=== PATIENT | male | born 1970 | race African-American/Black ===

== ENCOUNTER 2018-10-18 22:48 | Emergency (ER) | payer SELFPAY ==
--- NOTE | 2018-10-18 22:58 | ED.ADGEN ---
Past History Smoking: Cigarettes Alcohol Use: Heavy Drug Use: Cocaine, Marijuana, Other Adult General Chief Complaint Chief Complaint "...I ve been partying... did about six pack.. and some vodka... And about 5 lines of cocaine... but I fell backwards and hit my head... I still got a headache..." HPI HPI Patient is a 47 year old male who presents with above hx and complaints of head injury from fall. Pt. localizes pain to posterior scalp. Patient denies any neck pain. Patient has already removed his collar. Patient denies any immunosuppression. Patient denies any travel. Patient admits to alcohol and cocaine use tonight. Patient was ambulatory at scene. No reports of loss of consciousness. Pt. hyperventilating on arrival. Review of Systems Review of Systems Constitutional: Denies fever or chills [] Eyes: Denies change in visual acuity, redness, or eye pain [] HENT: Denies nasal congestion or sore throat [] Respiratory: Denies cough or shortness of breath [] Cardiovascular: No additional information not addressed in HPI [] GI: Denies abdominal pain, nausea, vomiting, bloody stools or diarrhea [] : Denies dysuria or hematuria [] Musculoskeletal: Denies back pain or joint pain [] Integument: Denies rash or skin lesions [] Neurologic: Complains of headache. Denies, focal weakness or sensory changes [] Endocrine: Denies polyuria or polydipsia [] All other systems were reviewed and found to be within normal limits, except as documented in this note. Family History Family History Noncontributory Current Medications Current Medications Current Medications Medications (Trade) Dose Ordered Sig/Julieta Start Time Stop Time Status Last Admin Dose Admin Folic Acid (FOLIC ACID SYRINGE for ER) 5 mg STK-MED ONCE 10/18/18 23:39 10/18/18 23:40 DC Lactated Ringer's 1,000 ml @ 1,000 mls/hr 1X ONCE 10/18/18 23:45 10/19/18 00:44 DC 10/18/18 23:47 1,000 MLS/HR Multivitamins/ Minerals (Infuvite Adult) 10 ml STK-MED ONCE 10/18/18 23:38 10/18/18 23:39 DC Multivitamins/ Minerals 10 ml/ Folic Acid 1 mg/ Thiamine HCl 100 mg/Lactated Ringer's 1,011.2 ml @ 1,011.2 mls/hr 1X ONCE 10/18/18 23:45 10/19/18 00:44 DC 10/18/18 23:45 1,011.2 MLS/HR Thiamine HCl (Thiamine Vial) 200 mg STK-MED ONCE 10/18/18 23:38 10/18/18 23:40 DC See nursing for home meds Allergies Allergies Allergies Coded Allergies Type Severity Reaction Last Updated Verified No Known Drug Allergies 10/18/18 No No known drug allergies Physical Exam Physical Exam Constitutional: no acute distress, non-toxic appearance. []Smell of alcohol intoxicants HENT: Normocephalic, contusion to posterior scalp, bilateral external ears normal, oropharynx dry, no oral exudates, nose injected turbinates. ] Eyes: PERRLA, EOMI, conjunctiva normal, no discharge. [] Neck: Normal range of motion, no tenderness, supple, no stridor. [] Cardiovascular: Tachycardia Heart rate regular rhythm, no murmur [] Lungs & Thorax: Bilateral breath sounds equal at apexes scattered wheezes on auscultation [] Abdomen: Bowel sounds normal, soft, no tenderness, no masses, no pulsatile masses. [] Skin: Warm, dry, no erythema, no rash. [] Back: No tenderness, no CVA tenderness. [] Extremities: No tenderness, no cyanosis, no clubbing, ROM intact, no edema. [] Neurologic: Alert and oriented X 3, normal motor function, normal sensory function, no focal deficits noted. [] Electronics Research Engineer equal. Psychologic: Affect anxious, judgement normal, mood normal. [] Current Patient Data Vital Signs Vital Signs Date Time Temp Pulse Resp B/P (MAP) Pulse Ox O2 Delivery O2 Flow Rate FiO2 10/19/18 01:25 86 17 111/56 (74) 97 Room Air 10/19/18 00:52 2.0 10/18/18 22:50 97.5 Lab Results Laboratory Tests Test 10/18/18 23:25 10/19/18 00:30 White Blood Count 9.6 x10^3/uL (4.0-11.0) Red Blood Count 5.27 x10^6/uL (4.30-5.70) Hemoglobin 15.5 g/dL (13.0-17.5) Hematocrit 46.7 % (39.0-53.0) Mean Corpuscular Volume 89 fL (79-100) Mean Corpuscular Hemoglobin 30 pg (25-35) Mean Corpuscular Hemoglobin Concent 33 g/dL (31-37) Red Cell Distribution Width 13.5 % (11.5-14.5) Platelet Count 386 x10^3/uL (140-400) Neutrophils (%) (Auto) 53 % (31-73) Lymphocytes (%) (Auto) 36 % (24-48) Monocytes (%) (Auto) 8 % (0-9) Eosinophils (%) (Auto) 2 % (0-3) Basophils (%) (Auto) 1 % (0-3) Neutrophils # (Auto) 5.1 x10^3uL (1.8-7.7) Lymphocytes # (Auto) 3.5 x10^3/uL (1.0-4.8) Monocytes # (Auto) 0.7 x10^3/uL (0.0-1.1) Eosinophils # (Auto) 0.2 x10^3/uL (0.0-0.7) Basophils # (Auto) 0.1 x10^3/uL (0.0-0.2) Segmented Neutrophils % 49 % (35-66) Lymphocytes % 46 % (24-48) Monocytes % 5 % (0-10) Platelet Estimate Adequate (ADEQUATE) Prothrombin Time 12.1 SEC (9.4-11.4) H Prothrombin Time INR 1.2 (0.9-1.1) H PTT 32 SEC (23-33) Sodium Level 142 mmol/L (136-145) Potassium Level 3.8 mmol/L (3.5-5.1) Chloride Level 100 mmol/L (98-107) Carbon Dioxide Level 10 mmol/L (21-32) *L Anion Gap 32 (6-14) H Blood Urea Nitrogen 21 mg/dL (8-26) Creatinine 2.4 mg/dL (0.7-1.3) H Estimated GFR (Cockcroft-Gault) 35.3 Glucose Level 107 mg/dL (70-99) H Calcium Level 9.6 mg/dL (8.5-10.1) Magnesium Level 3.4 mg/dL (1.8-2.4) H Total Bilirubin 0.5 mg/dL (0.2-1.0) Direct Bilirubin 0.1 mg/dL (0.0-0.2) Aspartate Amino Transferase (AST) 27 U/L (15-37) Alanine Aminotransferase (ALT) 23 U/L (16-63) Alkaline Phosphatase 87 U/L (46-116) Creatine Kinase 674 U/L (39-308) H Troponin I Quantitative < 0.017 ng/mL (0-0.055) Total Protein 8.9 g/dL (6.4-8.2) H Albumin 4.0 g/dL (3.4-5.0) Ethyl Alcohol Level < 10 mg/dL (0-10) Urine Collection Type Unknown Urine Color Yellow Urine Clarity Hazy Urine pH 5.5 Urine Specific [place] >=1.030 Urine Protein 100 mg/dl (NEG-TRACE) Urine Glucose (UA) Neg mg/dL (NEG) Urine Ketones (Stick) 40 mg/dL (NEG) Urine Blood Trace (NEG) Urine Nitrite Neg (NEG) Urine Bilirubin Neg (NEG) Urine Urobilinogen Dipstick 1 mg/dL (0.2 mg/dL) Urine Leukocyte Esterase Neg (NEG) Urine RBC Occ /HPF (0-2) Urine WBC Occ /HPF (0-4) Urine Squamous Epithelial Cells Few /LPF Urine Bacteria 0 /HPF (0-FEW) Urine Opiates Screen Neg (NEG) Urine Methadone Screen Neg (NEG) Urine Barbiturates Neg (NEG) Urine Phencyclidine Screen Neg (NEG) Urine Amphetamine/Methamphetamine Neg (NEG) Urine Benzodiazepines Screen Neg (NEG) Urine Cocaine Screen Pos (NEG) Urine Cannabinoids Screen Pos (NEG) Urine Ethyl Alcohol Neg (NEG) EKG EKG I interpretation EKG shows a sinus tachycardia heart beats per minute. No findings acute STEMI of contralateral changes.[] Radiology/Procedures Radiology/Procedures My interpretation chest x-ray shows no acute Cardiopulmonary findings.[] My interpretation CT of head and neck shows no obvious bleed, shift, mass, edema , bleed or fracture. Does have a retention nasal cyst on the left. Cervical shows no obvious fracture dislocation. See formal report when available Course & Med Decision Making Course & Med Decision Making Pertinent Labs and Imaging studies reviewed. (See chart for details) Patient to push fluids. Patient take Tylenol for discomfort. Patient follow-up primary care. Patient avoid further illicit drugs and alcohol tonight. Patient to return if any concerns. Pt. ambulatory without problems at time of discharge. [] Final Impression Final Impression 1. Fall 2. Head Injury 3. Hx. Polysubstance Abuse[]Tob., Cocaine, Marijuana 4. Dehydration 5. Elevated creatinine 2.4 6. Elevated Mag. Dragon Disclaimer Dragon Disclaimer This electronic medical record was generated, in whole or in part, using a voice recognition dictation system. RAYNA DEL RIO MD Oct 18, 2018 22:58
--- NOTE | 2018-10-18 23:22 | EKG ---
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
[2018-10-18] MEDS ORDERED: MVI, ADULT NO.4 WITH VIT K 10 ML VIAL IV ONE (23:38)
[2018-10-18] MEDS ORDERED: THIAMINE 200 MG/2 ML VIAL. IV ONE (23:38)
[2018-10-18] MEDS ORDERED: FOLIC ACID 5 MG/ML SYRINGE for ER IV ONE (23:39)
--- NOTE | 2018-10-18 23:41 | RAD ---
Examination: CT HEAD AND CERVICAL SPINE WO History: Fall tonight, hit head, intoxicated, vision problems, neck pain Comparison/Correlation: None Findings: Axial images of the head were obtained without contrast. Axial images of the cervical spine were obtained. Sagittal and coronal reformatted images were provided. Ventricles are normal size. No intracranial hemorrhage, midline shift, or mass effect. No depressed fracture. Maxillary sinus mucous retention cyst on the left is present. Chronic paranasal sinusitis. Globes and optic nerves are unremarkable. Atlantoaxial joint degenerative remodeling is present. Alignment is normal. No fracture or bony destruction. Mild spurring at the C3-4 disc space level with minimal foraminal encroachment noted. Soft tissues are unremarkable. Impression: No intracranial hemorrhage. No fracture or malalignment of the cervical spine. Electronically signed by: Abdoulaye Steward MD (10/18/2018 11:37 PM) [facility]
[2018-10-18 23:42] LABS: BASO # 0.1 x10^3/uL (0.0-0.2); BASO % 1 % (0-3); EOS # 0.2 x10^3/uL (0.0-0.7); EOS % 2 % (0-3); HEMATOCRIT 46.7 % (39.0-53.0); HEMOGLOBIN 15.5 g/dL (13.0-17.5); LYMPH # 3.5 x10^3/uL (1.0-4.8); LYMPH % 36 % (24-48); MEAN CORPUSCULAR HEMOGLOBIN 30 pg (25-35); MEAN CORPUSCULAR HGB CONC 33 g/dL (31-37); MEAN CORPUSCULAR VOLUME 89 fL (79-100); MONO # 0.7 x10^3/uL (0.0-1.1); MONO % 8 % (0-9); NEUT # 5.1 x10^3uL (1.8-7.7); NEUT % 53 % (31-73); PLATELET COUNT 386 x10^3/uL (140-400); RED BLOOD COUNT 5.27 x10^6/uL (4.30-5.70); RED CELL DISTRIBUTION WIDTH 13.5 % (11.5-14.5); WHITE BLOOD COUNT 9.6 x10^3/uL (4.0-11.0)
[2018-10-18] MEDS ORDERED: MVI, ADULT NO.4 WITH VIT K 10 ML, FOLIC ACID SYRINGE for ER 1 MG, THIAMINE INJ 100 MG i... IV ONE ×4 (23:45)
[2018-10-18] MEDS ORDERED: IV RINGERS SOLUTION,LACTATED 1,000 ML IV ONE (23:45)
[2018-10-18 23:54] LABS: CALCIUM 9.6 mg/dL (8.5-10.1); CREATININE 2.4 mg/dL (0.7-1.3); DIRECT BILIRUBIN 0.1 mg/dL (0.0-0.2); GFR 35.3; MAGNESIUM 3.4 mg/dL (1.8-2.4); POTASSIUM 3.8 mmol/L (3.5-5.1); TOTAL BILIRUBIN 0.5 mg/dL (0.2-1.0); TOTAL PROTEIN 8.9 g/dL (6.4-8.2)
[2018-10-19 00:01] LABS: % LYMPHS 46 % (24-48); % MONOS 5 % (0-10); % SEGS 49 % (35-66); PLT ESTIMATE ADEQUATE (ADEQUATE)
[2018-10-19 00:50] LABS: BARBITURATES NEG (NEG); BENZODIAZEPINES NEG (NEG); CANNABINOIDS POS (NEG); COCAINE POS (NEG); METHADONE NEG (NEG); OPIATES NEG (NEG); PHENCYCLIDINE NEG (NEG)
[2018-10-19 00:51] LABS: AMPHETAMINE/METHAMPHETAMINE NEG (NEG)
[2018-10-19 00:55] LABS: BILIRUBIN,URINE NEG (NEG); CLARITY,URINE HAZY; COLOR,URINE YELLOW; GLUCOSE,URINE NEG (NEG); NITRITE,URINE NEG (NEG); UROBILINOGEN,URINE 1 mg/dL (0.2 mg/dL)
[2018-10-19 00:56] LABS: BACTERIA,URINE 0 /HPF (0-FEW); RBC,URINE OCC /HPF (0-2); SQUAMOUS EPITHELIAL CELL,UR FEW /LPF; WBC,URINE OCC /HPF (0-4)
[2018-10-19 01:25] VITALS: BP 111/56
--- NOTE | 2018-10-19 08:22 | RAD ---
Chest, PA and Lateral: Technique: PA and lateral views of the chest were obtained. History: Fall, chest discomfort. Comparison: None. Findings: The heart and pulmonary vasculature appear within normal limits. Minimal bibasilar lung airspace opacities likely atelectasis or infiltrates.. Mild degenerative changes thoracic spine.. Impression: Minimal bibasilar lung airspace opacities likely atelectasis or infiltrates.. Electronically signed by: Shaun Miles MD (10/19/2018 8:18 AM) [facility]
== END 2018-10-19 01:25 | disposition home or self-care (01) ==
LOC: ER 22:48
DX: S00.03XA Contusion of scalp, initial encounter (principal); E86.0 Dehydration; R79.89 Other specified abnormal findings of blood chemistry; R79.0 Abnormal level of blood mineral; F17.210 Nicotine dependence, cigarettes, uncomplicated; F12.10 Cannabis abuse, uncomplicated; F14.10 Cocaine abuse, uncomplicated; F10.20 Alcohol dependence, uncomplicated; Y90.0 Blood alcohol level of less than 20 mg/100 ml; W18.09XA Striking against other object with subsequent fall, initial encounter; Y93.89 Activity, other specified; Y92.89 Other specified places as the place of occurrence of the external cause; Y99.8 Other external cause status
CPT/HCPCS: 36415; 70450; 71046; 72125; 80048; 80076; 80307; 81001; 82550; 83735; 84484; 85007; 85025; 85610; 85730; 93005; 96365; 99284; G0480; J7120

== ENCOUNTER 2018-11-29 20:32 | Emergency (ER) | payer SELFPAY ==
[~2018-11-29] VITALS: Ht 167.6 cm; Wt 91.0 kg
[2018-11-29 20:32] VITALS: BP 139/79
--- NOTE | 2018-11-29 21:29 | ED.ADGEN ---
Past History Past Medical History: No Pertinent History Past Surgical History: Other Smoking: Cigarettes Alcohol Use: Heavy Drug Use: Cocaine, Marijuana, Other Adult General Chief Complaint Chief Complaint 48 years old male presented to ER with fever HPI HPI 48 years old male presented emergency department with body aches fever cough Review of Systems Review of Systems Constitutional: + fever Eyes: Denies change in visual acuity, redness, or eye pain [] HENT: + nasal congestion or sore throat [] Respiratory: Denies cough or shortness of breath [] Cardiovascular: No additional information not addressed in HPI [] GI: Denies abdominal pain, nausea, vomiting, bloody stools or diarrhea [] : Denies dysuria or hematuria [] Musculoskeletal: Denies back pain or joint pain [] Integument: Denies rash or skin lesions [] Neurologic: Denies headache, focal weakness or sensory changes [] Endocrine: Denies polyuria or polydipsia [] All other systems were reviewed and found to be within normal limits, except as documented in this note. Allergies Allergies Allergies Coded Allergies Type Severity Reaction Last Updated Verified No Known Drug Allergies 10/18/18 No Physical Exam Physical Exam Constitutional: Well developed, well nourished, no acute distress, non-toxic appearance. [] HENT: Normocephalic, atraumatic, bilateral external ears normal, oropharynx moist, no oral exudates, nose normal. [] Eyes: PERRLA, EOMI, conjunctiva normal, no discharge. [] Neck: Normal range of motion, no tenderness, supple, no stridor. [] Cardiovascular:Heart rate regular rhythm, no murmur [] Lungs & Thorax: Bilateral breath sounds clear to auscultation [] Abdomen: Bowel sounds normal, soft, no tenderness, no masses, no pulsatile masses. [] Skin: Warm, dry, no erythema, no rash. [] Back: No tenderness, no CVA tenderness. [] Extremities: No tenderness, no cyanosis, no clubbing, ROM intact, no edema. [] Neurologic: Alert and oriented X 3, normal motor function, normal sensory function, no focal deficits noted. [] Psychologic: Affect normal, judgement normal, mood normal. [] EKG EKG [] Radiology/Procedures Radiology/Procedures [] Course & Med Decision Making Course & Med Decision Making Pertinent Labs and Imaging studies reviewed. (See chart for details) [] Final Impression Final Impression [] Problems: (1) Influenza A Dragon Disclaimer Dragon Disclaimer This electronic medical record was generated, in whole or in part, using a voice recognition dictation system. ESPERANZA DUNN MD Nov 29, 2018 21:29
== END 2018-11-29 21:00 | disposition home or self-care (01) ==
LOC: ER 20:32
DX: J10.1 Influenza due to other identified influenza virus with other respiratory manifestations (principal); F17.210 Nicotine dependence, cigarettes, uncomplicated; F10.20 Alcohol dependence, uncomplicated; Y90.9 Presence of alcohol in blood, level not specified
CPT/HCPCS: 99281

== ENCOUNTER 2018-12-12 23:04 | Emergency (ER) | payer SELFPAY ==
[~2018-12-12] VITALS: Ht 167.6 cm; Wt 88.5 kg
[2018-12-12 23:23] VITALS: BP 145/89
[2018-12-13] MEDS ORDERED: NEO/5DRO OS (00:13)
[2018-12-13] MEDS ORDERED: MELO7.5T5 PO (00:13)
--- NOTE | 2018-12-13 00:25 | ED.ADGEN ---
Past History Past Medical History: No Pertinent History Past Surgical History: Other Smoking: Cigarettes Alcohol Use: Heavy Drug Use: Cocaine, Marijuana, Other Adult General Chief Complaint Chief Complaint ear pain HPI HPI [age]years old male presented to the emergency department with the right ear pain for about a week also complaining of right foot pain for that week no history of trauma , no fever no chills, no headache no sore throat Review of Systems Review of Systems Constitutional: Denies fever or chills [] Eyes: Denies change in visual acuity, redness, or eye pain [] HENT: Denies nasal congestion or sore throat [] Respiratory: Denies cough or shortness of breath [] Cardiovascular: No additional information not addressed in HPI [] GI: Denies abdominal pain, nausea, vomiting, bloody stools or diarrhea [] : Denies dysuria or hematuria [] Musculoskeletal: Denies back pain or joint pain [] Integument: Denies rash or skin lesions [] Neurologic: Denies headache, focal weakness or sensory changes [] Endocrine: Denies polyuria or polydipsia [] All other systems were reviewed and found to be within normal limits, except as documented in this note. Allergies Allergies Allergies Coded Allergies Type Severity Reaction Last Updated Verified No Known Drug Allergies 10/18/18 No Physical Exam Physical Exam Constitutional: Well developed, well nourished, no acute distress, non-toxic appearance. [] HENT: Normocephalic, atraumatic, bilateral external ears right ear canal on the right oropharynx moist, no oral exudates, nose normal. [] Eyes: PERRLA, EOMI, conjunctiva normal, no discharge. [] Neck: Normal range of motion, no tenderness, supple, no stridor. [] Cardiovascular:Heart rate regular rhythm, no murmur [] Lungs & Thorax: Bilateral breath sounds clear to auscultation [] Abdomen: Bowel sounds normal, soft, no tenderness, no masses, no pulsatile masses. [] Skin: Warm, dry, no erythema, no rash. [] Back: No tenderness, no CVA tenderness. [] Extremities: No tenderness, no cyanosis, no clubbing, ROM intact, no edema. [] Neurologic: Alert and oriented X 3, normal motor function, normal sensory function, no focal deficits noted. [] Psychologic: Affect normal, judgement normal, mood normal. [] Current Patient Data Vital Signs Vital Signs Date Time Temp Pulse Resp B/P (MAP) Pulse Ox O2 Delivery O2 Flow Rate FiO2 12/12/18 23:23 98.0 111 20 100 Room Air EKG EKG [] Radiology/Procedures Radiology/Procedures [] Course & Med Decision Making Course & Med Decision Making Pertinent Labs and Imaging studies reviewed. (See chart for details) [] Final Impression Final Impression [] Problems: (1) Otitis externa Qualifiers: Dragon Disclaimer Dragon Disclaimer This electronic medical record was generated, in whole or in part, using a voice recognition dictation system. ESPERANZA DUNN MD Dec 13, 2018 00:25
--- NOTE | 2018-12-13 01:18 | RAD ---
Three-view right foot dated 12/12/2018. No comparison available. CLINICAL INDICATION: Severe medial foot pain for 3 days. FINDINGS: 3 views of the right foot show normal bony alignment. No displaced fracture. No acute osseous or articular abnormality. Mild degenerative change of the first MTP joint. IMPRESSION: No acute findings. Electronically signed by: Ken Pérez MD (12/13/2018 1:15 AM) [facility]
== END 2018-12-13 00:29 | disposition home or self-care (01) ==
LOC: ER 23:04
DX: H60.91 Unspecified otitis externa, right ear (principal); F17.210 Nicotine dependence, cigarettes, uncomplicated; F10.20 Alcohol dependence, uncomplicated; Y90.9 Presence of alcohol in blood, level not specified
CPT/HCPCS: 73630; 99283

== ENCOUNTER 2019-04-03 12:14 | Emergency (ER) | payer SELFPAY ==
[~2019-04-03] VITALS: Ht 167.6 cm; Wt 83.5 kg
[~2019-04-03 12:14] MED LIST: MELO7.5T5 PO; NEO/5DRO OS
--- NOTE | 2019-04-03 12:53 | PHYS DOC ---
Past History Past Medical History: No Pertinent History Past Surgical History: Other Smoking: Cigarettes Alcohol Use: Heavy Drug Use: Cocaine, Marijuana, Other Adult General Chief Complaint Chief Complaint: FLU SYMPTOM HPI HPI 48-year-old male presents with 2 day history of nausea, vomiting, and diarrhea. The patient states that this been going on for 2 days and he is unable to keep down any solid food. He vomits every time he tries. He has been able to keep down some water, but feels like he is still getting dehydrated. He has several episodes each day. After the vomiting started, he got diffuse abdominal cramping. He has not measured a fever, but has had chills. No known sick contacts. Review of Systems Review of Systems Constitutional: Denies fever or chills [] Eyes: Denies change in visual acuity, redness, or eye pain [] HENT: Denies nasal congestion or sore throat [] Respiratory: Denies cough or shortness of breath [] Cardiovascular: No additional information not addressed in HPI [] GI: Abdominal pain, nausea, vomiting, diarrhea [] : Denies dysuria or hematuria [] Musculoskeletal: Denies back pain or joint pain [] Integument: Denies rash or skin lesions [] Neurologic: Denies headache, focal weakness or sensory changes [] Endocrine: Denies polyuria or polydipsia [] All other systems were reviewed and found to be within normal limits, except as documented in this note. Allergies Allergies Allergies Coded Allergies Type Severity Reaction Last Updated Verified No Known Drug Allergies 10/18/18 No Physical Exam Physical Exam Constitutional: Well developed, well nourished, no acute distress, non-toxic appearance. [] HENT: Normocephalic, atraumatic, bilateral external ears normal, oropharynx dry, no oral exudates, nose normal. [] Eyes: PERRLA, EOMI, conjunctiva normal, no discharge. [] Neck: Normal range of motion, no tenderness, supple, no stridor. [] Cardiovascular:Heart rate regular rhythm, no murmur [] Lungs & Thorax: Bilateral breath sounds clear to auscultation [] Abdomen: Bowel sounds normal, soft, diffuse mild tenderness, no masses, no pulsatile masses. [] Skin: Warm, dry, no erythema, no rash. [] Back: No tenderness, no CVA tenderness. [] Extremities: No tenderness, no cyanosis, no clubbing, ROM intact, no edema. [] Neurologic: Alert and oriented X 3, normal motor function, normal sensory function, no focal deficits noted. [] Psychologic: Affect normal, judgement normal, mood normal. [] Current Patient Data Vital Signs Vital Signs Date Time Temp Pulse Resp B/P (MAP) Pulse Ox O2 Delivery O2 Flow Rate FiO2 04/03/19 12:30 98.4 98 16 98 Room Air EKG EKG [] Radiology/Procedures Radiology/Procedures [] Course & Med Decision Making Course & Med Decision Making Pertinent Labs and Imaging studies reviewed. (See chart for details) The patient was given 1 L normal saline, 4 mg Zofran IV, and 2 mg of loperamide. He's had no further vomiting or diarrhea in the ED. His labs remarkable for a slightly low potassium of 3.0. I will give him 40 mEq replacement orally. I will discharge the patient with Zofran prescription. He is stable for discharge at this time. [] Dragon Disclaimer Dragon Disclaimer This electronic medical record was generated, in whole or in part, using a voice recognition dictation system. Departure Departure: Impression: Primary Impression: Viral gastroenteritis Disposition: 01 HOME, SELF-CARE Condition: STABLE Referrals: PCP,NO (PCP) Patient Instructions: Viral Gastroenteritis, [id number] Scripts Ondansetron (ONDANSETRON ODT) 4 Mg Tab.rapdis 1 TAB PO PRN Q6-8HRS PRN for VOMITING, #16 TAB Prov: JOI RIOS DO 04/03/19 JOI RIOS DO Apr 03, 2019 12:53
[2019-04-03] MEDS ORDERED: LOPERAMIDE 2 MG CAPSULE PO ONE (13:00)
[2019-04-03] MEDS ORDERED: IV NORMAL SALINE 1,000ML 1,000 ML IV ONE (13:00)
[2019-04-03] MEDS ORDERED: ONDANSETRON PF 4 MG/2 ML VIAL. IV ONE (13:00)
[2019-04-03 13:30] LABS: BASO # 0.1 x10^3/uL (0.0-0.2); BASO % 1 % (0-3); EOS # 0.1 x10^3/uL (0.0-0.7); EOS % 1 % (0-3); HEMATOCRIT 45.3 % (39.0-53.0); HEMOGLOBIN 15.8 g/dL (13.0-17.5); LYMPH # 1.9 x10^3/uL (1.0-4.8); LYMPH % 18 % (24-48); MEAN CORPUSCULAR HEMOGLOBIN 29 pg (25-35); MEAN CORPUSCULAR HGB CONC 35 g/dL (31-37); MEAN CORPUSCULAR VOLUME 83 fL (79-100); MONO # 0.6 x10^3/uL (0.0-1.1); MONO % 6 % (0-9); NEUT # 7.6 x10^3uL (1.8-7.7); NEUT % 73 % (31-73); PLATELET COUNT 301 x10^3/uL (140-400); RED BLOOD COUNT 5.46 x10^6/uL (4.30-5.70); RED CELL DISTRIBUTION WIDTH 13.1 % (11.5-14.5); WHITE BLOOD COUNT 10.4 x10^3/uL (4.0-11.0)
[2019-04-03 13:46] LABS: ALBUMIN 3.7 g/dL (3.4-5.0); ALBUMIN/GLOBULIN RATIO 0.8 (1.0-1.7); CALCIUM 9.3 mg/dL (8.5-10.1); CREATININE 1.2 mg/dL (0.7-1.3); GFR 78.2; TOTAL BILIRUBIN 0.6 mg/dL (0.2-1.0); TOTAL PROTEIN 8.2 g/dL (6.4-8.2)
[2019-04-03] MEDS ORDERED: ONDA4TAB12 PO (13:56)
[2019-04-03] MEDS ORDERED: POTASSIUM CHLORIDE 20 MEQ TABLET.ER. PO ONE (14:00)
[2019-04-03 14:05] VITALS: BP 154/65
== END 2019-04-03 14:11 | disposition home or self-care (01) ==
LOC: ER 12:14
DX: A08.4 Viral intestinal infection, unspecified (principal); F17.210 Nicotine dependence, cigarettes, uncomplicated
CPT/HCPCS: 36415; 80053; 85025; 96361; 96374; 99284; J2405; J7030

== ENCOUNTER 2020-05-17 07:25 | Inpatient (IN) | payer SELFPAY ==
[~2020-05-17] VITALS: Ht 167.6 cm; Wt 91.2 kg
[~2020-05-17 07:25] MED LIST changes: +ONDA4TAB12 PO
--- NOTE | 2020-05-17 07:42 | PHYS DOC ---
Past History Past Medical History: No Pertinent History Past Surgical History: Other Past Surgical History hernia Smoking: Cigarettes Alcohol Use: Heavy Drug Use: Cocaine, Marijuana, Other General Adult EDM: Chief Complaint: body aches, chest pain, left arm pain HPI: HPI: Patient is a 49 year old male who presents for evaluation of body aches, chest cramping for the past 24 hours. Patient had other complaints including left arm pain for almost 2 weeks. Patient has had shortness of air for the past 2 to 3 days but no cough or congestion. Last night patient had some photophobia. Vital signs are stable and patient is not running a fever. COVID screening questions are negative. Patient does not have any known exposure to anyone ill with this virus. Patient does have some diffuse body aches. Patient has no significant past medical or cardiac history. Review of Systems: Review of Systems: Constitutional: Denies fever or chills Eyes: Denies change in visual acuity HENT: Denies nasal congestion or sore throat Respiratory: Denies cough or shortness of breath Cardiovascular: Denies chest pain or edema GI: Denies abdominal pain, nausea, vomiting, bloody stools or diarrhea : Denies dysuria Musculoskeletal: Denies back pain or joint pain Integument: Denies rash Neurologic: Denies headache, focal weakness or sensory changes Endocrine: Denies polyuria or polydipsia Lymphatic: Denies swollen glands Psychiatric: Denies depression or anxiety Heart Score: HEART Score for Chest Pain: HEART Score for Chest Pain Response (Comments) Value History Slighlty/Non-Suspicious 0 ECG Nonspecific Repolarizatio 1 Age >45 - < 65 1 Risk Factors No Risk Factors 0 Troponin < Normal Limit 0 Total 2 Risk Factors: Risk Factors: DM, Current or recent (<one month) smoker, HTN, HLP, family history of CAD, obesity. Risk Scores: Score 0 - 3: 2.5% MACE over next 6 weeks - Discharge Home Score 4 - 6: 20.3% MACE over next 6 weeks - Admit for Clinical Observation Score 7 - 10: 72.7% MACE over next 6 weeks - Early Invasive Strategies Allergies: Allergies: Allergies Coded Allergies Type Severity Reaction Last Updated Verified No Known Drug Allergies 10/18/18 No Physical Exam: PE: Constitutional: Well developed, well nourished, mild acute distress, non-toxic appearance. [] HENT: Normocephalic, atraumatic, bilateral external ears normal, oropharynx moist, no oral exudates, nose normal. [] Eyes: PERRL, EOMI, conjunctiva normal, no discharge. [] Neck: Normal range of motion, no tenderness, supple, no stridor. [] Cardiovascular:Heart rate regular rhythm, no murmur [] Lungs & Thorax: Bilateral breath sounds clear to auscultation [] Abdomen: Bowel sounds normal, soft, no tenderness, no masses, no pulsatile masses. [] Skin: Warm, dry, no erythema, no rash. [] Back: No tenderness. [] Extremities: No tenderness, no cyanosis, ROM intact, no edema. [] Neurologic: Alert and oriented X 3, normal motor function, normal sensory function, no focal deficits noted. [] Psychologic: Affect abnormal, judgement normal, mood anxious. [] Current Patient Data: Labs: Laboratory Tests Test 05/17/20 08:00 White Blood Count 8.6 x10^3/uL Red Blood Count 5.25 x10^6/uL Hemoglobin 15.5 g/dL Hematocrit 45.0 % Mean Corpuscular Volume 86 fL Mean Corpuscular Hemoglobin 30 pg Mean Corpuscular Hemoglobin Concent 34 g/dL Red Cell Distribution Width 13.6 % Platelet Count 326 x10^3/uL Neutrophils (%) (Auto) 56 % Lymphocytes (%) (Auto) 31 % Monocytes (%) (Auto) 9 % Eosinophils (%) (Auto) 3 % Basophils (%) (Auto) 1 % Neutrophils # (Auto) 4.8 x10^3uL Lymphocytes # (Auto) 2.7 x10^3/uL Monocytes # (Auto) 0.8 x10^3/uL Eosinophils # (Auto) 0.2 x10^3/uL Basophils # (Auto) 0.1 x10^3/uL D-Dimer (Hina) 0.31 mg/L Sodium Level 137 mmol/L Potassium Level 3.1 mmol/L Chloride Level 101 mmol/L Carbon Dioxide Level 23 mmol/L Anion Gap 13 Blood Urea Nitrogen 37 mg/dL Creatinine 2.2 mg/dL Estimated GFR (Cockcroft-Gault) 38.7 BUN/Creatinine Ratio 17 Glucose Level 132 mg/dL Calcium Level 9.0 mg/dL Total Bilirubin 0.6 mg/dL Aspartate Amino Transf (AST/SGOT) 33 U/L Alanine Aminotransferase (ALT/SGPT) 22 U/L Alkaline Phosphatase 75 U/L Troponin I Quantitative < 0.017 ng/mL Total Protein 8.8 g/dL Albumin 4.0 g/dL Albumin/Globulin Ratio 0.8 Current Medications Medications (Trade) Dose Ordered Sig/Julieta Route PRN Reason Start Time Stop Time Status Last Admin Dose Admin Aspirin (Aspirin Chewable) 324 mg 1X ONCE PO 05/17/20 08:00 05/17/20 08:10 DC 05/17/20 08:15 Sodium Chloride (Normal Saline Flush) 10 ml QSHIFT PRN IV AFTER MEDS AND BLOOD DRAWS 05/17/20 08:00 EKG: EKG: EKG shows normal sinus rhythm, rate 78, normal axis, inverted T waves inferior leads inverted T waves lateral leads V5 and V6 not STEMI [] Radiology/Procedures: Radiology/Procedures: [place] [address] IMAGING REPORT Signed PATIENT: ANAY GILBERT ACCOUNT: [id number] : 1970 LOCATION: ER AGE: 49 SEX: M EXAM STATUS: REG ER ORD. PHYSICIAN: KEVIN HUDDLESTON DO REASON: chest pain PROCEDURE: PORTABLE CHEST 1V EXAM: PORTABLE CHEST 1V INDICATION: Reason: chest pain / Spl. Instructions: / History: . TECHNIQUE: Single view COMPARISON: 10/19/2018 chest x-ray FINDINGS: The heart size is normal. The great vessels appear unremarkable. There is no hilar or mediastinal mass. The lungs are clear. There is no pleural effusion or pneumothorax. There are no significant osseous abnormalities. IMPRESSION: No active cardiopulmonary disease. Electronically signed by: Oriana Brantley MD (05/17/2020 8:49 AM) [id number] DICTATED AND SIGNED BY: ORIANA BRANTLEY MD DATE: 05/17/20 0849 CC: PCP,NO; KEVIN HUDDLESTON DO ~ [] Course & Med Decision Making: Course & Med Decision Making Pertinent Labs and Imaging studies reviewed. (See chart for details) 0811 patient refused the covert swab because he is afraid it will hurt too much. Patient advised that failure to diagnose this condition could result in or disability of him or to anyone he might expose to this condition 0909 Stable, feeling better now but now chest pain free. Ddimer added due to ongoing arm pain and atypical chest pain for evaluation of possible DVT vs PE. [address] Huang who agreed to admit the patient for telemetry bed for overnight observation. He will likely get a cardiology consult Dragon Disclaimer: Dragon Disclaimer: This electronic medical record was generated, in whole or in part, using a voice recognition dictation system. Departure Departure: Impression: Primary Impression: Precordial chest pain Additional Impressions: Acute electrocardiogram changes Renal insufficiency Disposition: ADMITTED INPATIENT Admitting Physician: Rolf Huang Condition: STABLE Referrals: PCP,NO (PCP) Justification of Admission: Justification of Admission: Justification of Admission Dx: Yes Angina: [facility] COVID-19 Assessment COVID-19 Patient Risks: Age 65 or older: No Sign of co-morbidity: No Exp to person + for COVID: No Exp to PUI: No Travel from affected area: No Lower respiratory symptoms: Yes Fever: No Other: Yes (chews) Comments: pt has chest pain and body aches PPE Use: Full PPE with N95 mask or PAPR: Yes KEVIN HUDDLESTON DO May 17, 2020 07:42
[2020-05-17] MEDS ORDERED: 0.9 % SODIUM CHLORIDE 10 ML DISP.SYRIN. IV PRN (08:00)
[2020-05-17] MEDS ORDERED: ASPIRIN CHEWABLE 81 MG TABLET. PO ONE (08:00)
[2020-05-17 08:25] LABS: BASO # 0.1 x10^3/uL (0.0-0.2); BASO % 1 % (0-3); EOS # 0.2 x10^3/uL (0.0-0.7); EOS % 3 % (0-3); HEMOGLOBIN 15.5 g/dL (13.0-17.5); LYMPH # 2.7 x10^3/uL (1.0-4.8); LYMPH % 31 % (24-48); MEAN CORPUSCULAR HEMOGLOBIN 30 pg (25-35); MEAN CORPUSCULAR HGB CONC 34 g/dL (31-37); MEAN CORPUSCULAR VOLUME 86 fL (79-100); MONO # 0.8 x10^3/uL (0.0-1.1); MONO % 9 % (0-9); NEUT # 4.8 x10^3uL (1.8-7.7); NEUT % 56 % (31-73); PLATELET COUNT 326 x10^3/uL (140-400); RED BLOOD COUNT 5.25 x10^6/uL (4.30-5.70); RED CELL DISTRIBUTION WIDTH 13.6 % (11.5-14.5); WHITE BLOOD COUNT 8.6 x10^3/uL (4.0-11.0)
[2020-05-17 08:33] LABS: CREATININE 2.2 mg/dL (0.7-1.3); GFR 38.7; POTASSIUM 3.1 mmol/L (3.5-5.1)
[2020-05-17 08:38] LABS: ALBUMIN/GLOBULIN RATIO 0.8 (1.0-1.7); TOTAL BILIRUBIN 0.6 mg/dL (0.2-1.0); TOTAL PROTEIN 8.8 g/dL (6.4-8.2)
--- NOTE | 2020-05-17 08:52 | RAD ---
EXAM: PORTABLE CHEST 1V INDICATION: Reason: chest pain / Spl. Instructions: / History: . TECHNIQUE: Single view COMPARISON: 10/19/2018 chest x-ray FINDINGS: The heart size is normal. The great vessels appear unremarkable. There is no hilar or mediastinal mass. The lungs are clear. There is no pleural effusion or pneumothorax. There are no significant osseous abnormalities. IMPRESSION: No active cardiopulmonary disease. Electronically signed by: Priscilla Brantley MD (05/17/2020 8:49 AM) [id number]
[2020-05-17] MEDS ORDERED: ONDANSETRON PF 4 MG/2 ML VIAL. IVP PRN (10:00)
[2020-05-17 11:47] VITALS: BP 115/83
--- NOTE | 2020-05-17 12:00 | NUR ---
The patient, ANAY GILBERT, 49 y/o, M admitted by ADELINE MARTINEZ MD, was given written information regarding hospital policies, unit procedures and contact persons. Patient reports new onset chest pain and left arm/shoulder pain that started last night. He reports he was unable to sleep well r/t pain. He took Tylenol at home, it did not help. Patient was able to drive himself to the ER and was a direct admit to [address] [place] [address]. Family history of CAD, both parents r/t cardiac diagnosis. 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 Patient is A/O x4, pleasant and calm upon arrival. Patient is resting in his room, call light within reach. Belongings were inventoried and remain in the room with patient.
--- NOTE | 2020-05-17 13:11 | HP ---
ADMIT DATE: 05/17/2020 ATTENDING PHYSICIAN: Dr. Martinez. CHIEF COMPLAINT: Body aches and myalgias, chest pain. HISTORY OF PRESENT ILLNESS: The patient is a 49-year-old gentleman with a 2-day history of cramping, myalgias, short of breath for the last 2 days. He is a smoker. The patient has not been running any fevers. COVID screening questions were negative. Chest x-ray was clear. He did have some diffuse myalgias. His potassium is low. Creatinine is a bit elevated. He is not on a diuretic. Clinically, appears dehydrated. He is admitted then for rehydration and serial cardiac enzymes. PAST MEDICAL HISTORY: Significant for substance abuse. He has used cocaine and marijuana in the past. There is no history of heart disease. PAST SURGICAL HISTORY: Bilateral inguinal hernia repair. ALLERGIES: He has no known drug allergies. CURRENT MEDICINES: Reviewed. He does not take anything [id number]. He was on meloxicam, neomycin, polymyxin and Zofran p.r.n. SOCIAL HISTORY: Smoking history and drug use history as noted. FAMILY HISTORY: Father of heart disease at age 68. Mother of heart disease at age 61. He has several brothers also with heart disease. REVIEW OF SYSTEMS: Significant for myalgias, body aches. No nausea, no vomiting, no hematemesis. No fevers or chills. All other systems reviewed and turned to be negative. PHYSICAL EXAMINATION: GENERAL: When I saw him, this is a pleasant gentleman. He was eating well and he had no new complaints. INITIAL VITAL SIGNS: Showed a blood pressure 118/80, pulse 71 and regular, temperature 98.3 degrees Fahrenheit, oxygen saturation 97% on room air. HEENT: Head is without trauma. Pupils are reactive. Sclerae nonicteric. Oropharynx is clear. NECK: Supple, no bruits identified. LUNGS: Otherwise clear. CARDIOVASCULAR: Showed regular heart tones. No gallops. Peripheral pulses are palpable and full. ABDOMEN: Soft, scaphoid, nontender. EXTREMITIES: Showed no cyanosis or edema. NEUROLOGIC: Focally intact. Speech is fluent. SKIN: Warm and dry. LABORATORY STUDIES: Chest x-ray is clear. EKG is nondiagnostic. Creatinine is 2.2 mg/dL, BUN 37 mg/dL, potassium is 3.1 mEq per liter. ASSESSMENT: 1. A 49-year-old gentleman with myalgias. 2. Dehydration. 3. Probable recent viral infection. 4. Chronic obstructive pulmonary disease. 5. History of substance abuse. PLAN: 1. Admit to the inpatient unit. 2. Gentle IV hydration. 3. Potassium and magnesium replacement. 4. Serial chemistries. 5. Serial cardiac enzymes. ADELINE MARTINEZ MD DR: ASIA/aleksey JOB#: [id number] / [id number]
[2020-05-17] MEDS: POTASSIUM CHLORIDE 20 MEQ TABLET.ER. PO SCH (13:27)
[2020-05-17] MEDS: IV NORMAL SALINE 1,000ML 1,000 ML IV SCH (13:28)
[2020-05-17 14:33] VITALS: BP 122/79
--- NOTE | 2020-05-17 15:00 | NUR ---
IV initiated in ER at R. A/C has occluded multiple times while fluids are running. May need to move to another site. Addendum: 05/17/20 at 1731 by SOTERO FLORES RN Original IV in R AC discontinued. New IV started Left wrist/arm 20 gauge NS infusing 90mls/hr.
--- NOTE | 2020-05-17 15:51 | EKG ---
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
[2020-05-17 20:10] VITALS: BP 106/67
[2020-05-17 23:23] VITALS: BP 105/67
[2020-05-18] MEDS: IV NORMAL SALINE 1,000ML 1,000 ML IV SCH (01:56)
--- NOTE | 2020-05-18 05:04 | NUR ---
Pt during assessment had no complaints of chest pain but did note pain in his left arm. While assessing left arm, pt flexed and appeared to have abnormality in biceps muscle structure. Pt states this is new and began yesterday before arriving to the ED.
[2020-05-18 05:47] VITALS: BP 95/61
[2020-05-18] MEDS: POTASSIUM CHLORIDE 20 MEQ TABLET.ER. PO SCH (07:53)
--- NOTE | 2020-05-18 09:49 | DS ---
DATE OF DISCHARGE: 05/18/2020 ATTENDING PHYSICIAN: Dr. Martinez. FINAL DISCHARGE DIAGNOSES: 1. Dehydration. 2. Chronic kidney disease stage III. 3. History of substance abuse. 4. Apparent left biceps tendon rupture, duration unknown. 5. Myalgias, resolved. 6. Probable recent viral infection. HISTORY AND PHYSICAL: The patient is a 49-year-old gentleman. He had vague symptoms of myalgias and body aches. He was admitted for further evaluation. He had some left shoulder pain and upon further examination, it appears he has had an old rupture of the biceps tendon on the left side. PHYSICAL EXAMINATION: Please see the dictated note. PERTINENT LABORATORY AND X-RAY STUDIES: Chemistry panel showed a creatinine of 2.2 mg percent. This will be followed as an outpatient. Three sets of cardiac enzymes negative for myocardial necrosis. We were not able to get an MRI at our facility. COURSE IN THE HOSPITAL: He was treated overnight with IV hydration. He felt better. I examined his shoulder. He has a mass of the biceps which appears the anterior head of the biceps muscle has been ruptured and is free in the left upper arm. He has minimal pain on palpation over the supraspinatus joint. His enzymes were negative. He felt better clinically. At this time, I suggested that we set him up as an outpatient for orthopedic consultation and MRI of the left shoulder. I can follow up with him at the [facility] across the street. I gave him the phone number for followup appointment. There are no other medications. He did not want any further labs drawn. He felt better. We will follow up on his chemistries and creatinine as an outpatient. He was discharged then from our hospital in stable condition with explicit instructions and followup care. ADELINE MARTINEZ MD DR: ASIA/aleksey JOB#: [id number] / [id number]
--- NOTE | 2020-05-18 10:09 | NUR ---
NSG NOTE; DISCHARGE VERBAL AND WRITTEN DISCHARGE INSTRUCTIONS GIVEN TO PT WITH VERBAL UNDERSTANDING PT ENC TO FOLLOW UP WITH HIS [employer] CONSULTANT FOR ORTHO REFERRAL DISCHARGED TO HOME AT [address] [facility] BY FRIEND WHO IS PICKING HIM UP
== END 2020-05-18 10:00 | disposition home or self-care (01) | DRG 563 ==
LOC: ER 07:25 → 1 SOUTH 10:23 → OBSVTOIN 10:23
PROVIDERS: ADMIT Hospitalist; ATTEND Hospitalist
DX: S46.212A Strain of muscle, fascia and tendon of other parts of biceps, left arm, initial encounter (principal); E86.0 Dehydration; R07.2 Precordial pain; N18.3 Chronic kidney disease, stage 3 (moderate); F17.200 Nicotine dependence, unspecified, uncomplicated; F14.90 Cocaine use, unspecified, uncomplicated; M79.10 Myalgia, unspecified site; J44.9 Chronic obstructive pulmonary disease, unspecified; Z82.49 Family history of ischemic heart disease and other diseases of the circulatory system
CPT/HCPCS: 36415; 71045; 80053; 84484; 85025; 85379; 93005; 99285-25; J7030

== ENCOUNTER 2022-02-09 20:37 | Emergency (ER) | payer SELFPAY ==
[~2022-02-09] VITALS: Ht 167.6 cm; Wt 92.8 kg
[2022-02-09 20:50] VITALS: BP 130/82
[2022-02-09] MEDS ORDERED: HYDROcodone/APAP 5/325MG 1 TAB TABLET PO ONE (21:00)
[2022-02-09] MEDS ORDERED: IBUPROFEN 600 MG TABLET. PO ONE (21:00)
--- NOTE | 2022-02-09 21:24 | RAD ---
Exam: Left wrist 3 views INDICATION: Pain TECHNIQUE: Frontal, lateral oblique views of the left wrist Comparisons: None FINDINGS: Bone mineralization is normal. No acute or healed fractures. Soft tissues are unremarkable. Joint spa yajaira are well-maintained IMPRESSION: No acute osseous abnormality Electronically signed by: Rosa Mendez MD (02/09/2022 9:21 PM) ERICK
--- NOTE | 2022-02-09 21:26 | PHYS DOC ---
Past History Past Medical History: No Pertinent History Past Surgical History: Other Additional Past Surgical Histo: bilat ing hernia repair Smoking: Cigarettes Alcohol Use: Heavy Drug Use: Cocaine, Marijuana, Other General Adult EDM: Chief Complaint: HAND PROBLEM HPI: HPI: Patient is a 51-year-old male presents with left wrist pain. Patient denies injury. Ibuprofen at home for pain. Pain is worse with movement. Range of motion and sensation are both intact. Denies medical history. Review of Systems: Review of Systems: ROS At least 10 ROS systems have been reviewed and are negative except as documented in the HPI. General: Negative except as outlined in HPI above. Skin: Negative except as outlined in HPI above. HEENT: Negative except as outlined in HPI above. Neck: Negative except as outlined in HPI above. Respiratory: Negative except as outlined in HPI above.. Cardiovascular: Negative except as outlined in HPI above. Abdomen: Negative except as outlined in HPI above. : Negative except as outlined in HPI above. Back/MSK: Negative except as outlined in HPI above. Neuro: Negative except as outlined in HPI above. Psych: Negative except as outlined in HPI above. Current Medications: Current Meds: Current Medications Medications (Trade) Dose Ordered Sig/Julitea Start Time Stop Time Status Last Admin Dose Admin Acetaminophen/ Hydrocodone Bitart (Lortab 5/325) 1 tab ONCE ONCE 02/09/22 21:00 02/09/22 21:01 DC 02/09/22 21:00 1 TAB Ibuprofen (Motrin) 600 mg 1X ONCE 02/09/22 21:00 02/09/22 21:01 DC 02/09/22 21:00 600 MG Allergies: Allergies: Allergies Coded Allergies Type Severity Reaction Last Updated Verified No Known Drug Allergies 05/17/20 No Physical Exam: PE: Constitutional: Well developed, well nourished, no acute distress, non-toxic appearance. [] HENT: Normocephalic, atraumatic, bilateral external ears normal, oropharynx moist, no oral exudates, nose normal. [] Eyes: PERRLA, EOMI, conjunctiva normal, no discharge. [] Neck: Normal range of motion, no tenderness, supple, no stridor. [] Cardiovascular:Heart rate regular rhythm, no murmur [] Lungs & Thorax: Bilateral breath sounds clear to auscultation [] Abdomen: Bowel sounds normal, soft, no tenderness, no masses, no pulsatile masses. [] Skin: Warm, dry, no erythema, no rash. [] Back: No tenderness, no CVA tenderness. [] Extremities: Left wrist tenderness,ROM intact, mild swelling, radial pulses intact Neurologic: Alert and oriented X 3, normal motor function, normal sensory function, no focal deficits noted. [] Psychologic: Affect normal, judgement normal, mood normal. [] Current Patient Data: Vital Signs: Vital Signs Date Time Temp Pulse Resp B/P (MAP) Pulse Ox O2 Delivery O2 Flow Rate FiO2 02/09/22 21:00 16 02/09/22 20:50 98.1 94 130/82 (98) 98 Room Air EKG: EKG: [] Radiology/Procedures: Radiology/Procedures: []Exam: Left wrist 3 views INDICATION: Pain TECHNIQUE: Frontal, lateral oblique views of the left wrist Comparisons: None FINDINGS: Bone mineralization is normal. No acute or healed fractures. Soft tissues are unremarkable. Joint spaces are well-maintained IMPRESSION: No acute osseous abnormality Electronically signed by: Rosa Mendez MD (02/09/2022 9:21 PM) [facility] Heart Score: C/O Chest Pain: No Risk Factors: Risk Factors: DM, Current or recent (<one month) smoker, HTN, HLP, family history of CAD, obesity. Risk Scores: Score 0 - 3: 2.5% MACE over next 6 weeks - Discharge Home Score 4 - 6: 20.3% MACE over next 6 weeks - Admit for Clinical Observation Score 7 - 10: 72.7% MACE over next 6 weeks - Early Invasive Strategies Course & Med Decision Making: Course & Med Decision Making Pertinent Labs and Imaging studies reviewed. (See chart for details) [] 51-year-old male presents with left wrist pain. No injury. Patient's been taking ibuprofen at home for pain. Range of motion and sensation are both intact. Radial pulses intact. Left wrist x-ray ordered to rule out fracture. Educated on RICE. Ibuprofen and Tylenol at home for pain. Dragon Disclaimer: Dragon Disclaimer: This electronic medical record was generated, in whole or in part, using a voice recognition dictation system. Departure Departure: Impression: Primary Impression: Wrist contusion Qualified Codes: S60.212A - Contusion of left wrist, initial encounter Disposition: HOME / SELF CARE / HOMELESS Condition: STABLE Referrals: PCP,NO (PCP) Patient Instructions: Wrist Pain, [id number]-[id number] Additional Instructions: You are seen in the emergency room for wrist pain. X-ray was unremarkable. You need to follow-up with a PCP. Rest, use ice, elevate to help with discomfort. Ibuprofen and Tylenol at home. Return to emergency room with worsening symptoms or concerns. Otherwise follow-up with your PCP for possible repeat imaging if symptoms or not better in the next 5 to 7 days EMERGENCY DEPARTMENT GENERAL DISCHARGE INSTRUCTIONS Thank you for coming to [facility] (ED) today and trusting us with you care. We trust that you had a positivie experience in our Emergency Department. If you wish to speak to the department management, you may call the director at [phone]. YOUR FOLLOW UP INSTRUCTIONS ARE FOLLOWS: 1. Do you have a private Doctor? If you do not have a private doctor, please ask for a resource list of physicians or clinics that may be able to assist you with follow up care. 2. The Emergency Physician has interpreted your x-rays. The X-Ray specialist will also review them. If there is a change in the findings, you will be notified in 48 hours when at all possible. 3. A lab test or culture has been done, your results will be reviewed and you w ill be notified if you need a change in treatment. ADDITIONAL INSTRUCTIONS AND INFORMATION: 1. Your care today has been supervised by a physician who is specially trained in emergency care. Many problems require more than one evaluation for a complete diagnosis and treatment. We recommend that you schedule your follow up appointment as recommended to ensure complete treatment of you illness or injury. If you are unable to obtain follow up care and continue to have a problem, or if your condition worsens, we recommend that you return to the ED. 2. We are not able to safely determine your condition over the phone nor are we able to give sound medical advice over the phone. For these safety reasons, if you call for medical advice we will ask you to come to the ED for further evaluation. 3. If you have any questions regarding these discharge instructions please call the ED at [phone]. SAFETY INFORMATION: In the interest of safety, wellness, and injury prevention; we encourage you to wear your sealbelt, if you smoke; quite smoking, and we encourage family to use a protective helmet for bicycling and other sporting events that present an increased risk for head injury. IF YOUR SYMPTOMS WORSEN OR NEW SYMPTOMS DEVELOP, OR YOU HAVE CONCERNS ABOUT YOUR CONDITION; OR IF YOUR CONDITION WORSENS WHILE YOU ARE WAITING FOR YOUR FOLLOW UP APPOINTMENT; EITHER CONTACT YOUR PRIMARY CARE DOCTOR, THE PHYSICIAN WHOSE NAME AND NUMBER YOU WERE GIVEN, OR RETURN TO THE ED IMMEDIATELY. Scripts No Active Prescriptions or Reported Meds DAYAN ASTORGA APRN February 09, 2022 21:26
== END 2022-02-09 21:48 | disposition home or self-care (01) ==
LOC: ER 20:37
DX: S60.212A Contusion of left wrist, initial encounter (principal); F17.210 Nicotine dependence, cigarettes, uncomplicated; F10.20 Alcohol dependence, uncomplicated; Y90.9 Presence of alcohol in blood, level not specified; X58.XXXA Exposure to other specified factors, initial encounter; Y93.89 Activity, other specified; Y92.89 Other specified places as the place of occurrence of the external cause; Y99.8 Other external cause status
CPT/HCPCS: 73110; 99283